=== PATIENT | male | born 2000 | race Caucasian/White ===

== ENCOUNTER 2020-05-28 22:39 | Emergency (ER) | payer OTHER ==
[~2020-05-28] VITALS: Ht 177.8 cm; Wt 70.3 kg
[2020-05-28 22:46] VITALS: BP 144/72
--- NOTE | 2020-05-28 23:10 | NUR ---
[facility]MD IN TENT EVALUATING PT
--- NOTE | 2020-05-28 23:23 | NUR ---
ASSESSMENT COMPLETED BY DR. CRUZ, NO NURSING INTERVENTIONS NEEDED AT THIS TIME.
--- NOTE | 2020-05-28 23:36 | NUR ---
EKG PERFORMED IN TRIAGE ROOM
[2020-05-28 23:45] VITALS: BP 144/72
--- NOTE | 2020-05-28 23:45 | NUR ---
Patient discharged with v/s stable. Written and verbal after care instructions given and explained. Patient alert, oriented and verbalized understanding of instructions. Ambulatory with steady gait. All questions addressed prior to discharge. ID band removed. Patient advised to follow up with PMD. Rx of MOTRIN , PROMETHAZINE AND ALBUTEROL given. Patient educated on indication of medication including possible reaction and side effects. Opportunity to ask questions provided and answered.
== END 2020-05-28 23:45 | disposition home or self-care (01) ==
LOC: MED 22:39
DX: R05 Cough (principal); R07.9 Chest pain, unspecified; J45.909 Unspecified asthma, uncomplicated
CPT/HCPCS: 93005; 99283